=== PATIENT | male | born 1980 | race Caucasian/White ===

== ENCOUNTER 2016-08-05 14:31 | Emergency (ER) | payer OTHER ==
[~2016-08-05] VITALS: Ht 165.1 cm; Wt 77.3 kg
[~2016-08-05 14:31] MED LIST: ACETAMINOPHEN W1 TA6 PO; FAMVIR 500500 MG/TAB PO; FLEXERIL10 MG PO; IBUPROFEN200 M1 PO; NAPROXEN EC500 MG PO; NO HOME MEDICATIONS; NORCO 325 MG-51 TAB PO
[2016-08-05 14:41] VITALS: BP 159/84; TEMP 98.1
[2016-08-05] MEDS ORDERED: FLEXERIL 1010 MG/TAB PO (16:00)
[2016-08-05] MEDS ORDERED: NORCO 325 MG-51 TAB PO (16:00)
[2016-08-05 16:10] VITALS: PULSE 57
== END 2016-08-05 16:10 | disposition home or self-care (01) ==
LOC: COL.ER 14:31
DX: M54.41 Lumbago with sciatica, right side (principal)
CPT/HCPCS: J1100; J2360

== ENCOUNTER → 2016-08-21 | Outpatient (CLI) | payer OTHER ==
[~2016-08-21] MED LIST changes: +FLEXERIL 1010 MG/TAB PO
== END ==
LOC: COL.RAD 08:59
DX: M43.06 Spondylolysis, lumbar region (principal); M54.5 Low back pain

== ENCOUNTER → 2016-08-23 | Outpatient (CLI) | payer OTHER ==
[2016-08-23 11:28] LABS: PH 5 (5-8); SQUAMOUS EPITHELIAL 0-2 /hpf; URINE APPEARANCE Clear; URINE BACTERIA None Seen /hpf; URINE BILIRUBIN Negative (NEGATIVE); URINE BLOOD Negative (NEGATIVE); URINE COLOR Yellow; URINE GLUCOSE Negative (NEGATIVE); URINE KETONE Negative (NEGATIVE); URINE RBC 0-2 /hpf; URINE UROBILINOGEN Negative (NEGATIVE); URINE WBC 0-2 /hpf
[2016-08-23 12:00] LABS: HEMATOCRIT 43.8 % (42.0-52.0); HEMOGLOBIN 15.2 g/dl (13.5-18.0); MEAN CELL VOLUME 87 fl (80.0-100.0); MEAN CORPUSCULAR HEMOGLOBIN 30 pg (27.0-31.0); MEAN CORPUSCULAR HGB CONC 35 g/dl (33.0-37.0); PLATELET COUNT 262 K/mm3 (130-400); RED BLOOD COUNT 5.03 M/mm3 (4.20-5.60); REDCELL DISTRIBUTION WIDTH-CV 12.4 % (11.5-14.5); WHITE BLOOD COUNT 7.5 K/mm3 (4.8-10.8)
[2016-08-23 12:02] LABS: ADJUSTED CALCIUM 8.7 mg/dL (8.4-10.2); ALBUMIN 4.5 gm/dL (3.5-5.0); BILIRUBIN,TOTAL 0.8 mg/dL (0.0-1.0); CALCIUM 9.1 mg/dL (8.4-10.2); CREATININE, serum 0.7 mg/dL (0.66-1.25); POTASSIUM 3.8 mmol/L (3.4-5.0)
== END ==
LOC: ZLAB.FHCC 09:53 → COL.LAB 09:53
DX: M79.671 Pain in right foot (principal); R22.41 Localized swelling, mass and lump, right lower limb